=== PATIENT | male | born 1985 | race Caucasian/White ===

== ENCOUNTER 2023-06-14 21:24 | Emergency (ER) | payer OTHER ==
[2023-06-14 21:31] VITALS: BP 134/81; PULSE 79; RESP 18; TEMP 98; BMI 28.1
== END 2023-06-14 22:20 | disposition home or self-care (01) ==
LOC: JERFT 21:24
DX: S39.012A Strain of muscle, fascia and tendon of lower back, initial encounter (principal); X50.0XXA Overexertion from strenuous movement or load, initial encounter; Y92.9 Unspecified place or not applicable
CPT/HCPCS: 72100-TC-FY; 99283-25

== ENCOUNTER 2024-01-29 10:03 | Emergency (ER) | payer OTHER ==
[2024-01-29 10:09] VITALS: BP 132/83; PULSE 83; RESP 18; TEMP 98.9; BMI 28.1
[2024-01-29] MEDS ORDERED: IBUPROFEN 600 MG TABLET (FP) PO ONE (10:49)
[2024-01-29] MEDS: IBUPROFEN 600 MG TABLET (FP) PO ONE (10:52)
== END 2024-01-29 11:31 | disposition home or self-care (01) ==
LOC: JERFT 10:03
DX: M25.561 Pain in right knee (principal)
CPT/HCPCS: 73562-TC-RT-FY; 99283-25